=== PATIENT | female | born 1980 | race Caucasian/White ===

== ENCOUNTER → 2019-12-04 | Outpatient (CLI) | payer OTHER ==
[2019-12-04 13:07] VITALS: BP 111/73; PULSE 78; RESP 16; TEMP 98.1
--- NOTE | 2019-12-04 13:39 | P.GSHP ---
History of Present Illness H&P Date: 12/04/19 Chief Complaint: right breast garett Peña is a 39 year old white female who noted a small lump in her right breast 7 years ago. She states in July it increased in size and became painful. She had bilateral mammogram in July 2019 which was benign. She nielsen an ultrasound in August 2019 which showed a small fluid collection approximately 2.2 x 1.2 cm in size which there was question as to whether this was a area of abscess under treatment. This was felt to be benign BIRADS 3 and 6 month repeat radiographic evaluation of the right breast was recommended. She was treated with antibiotics between the mammogram and ultrsound did not seem to help, and the patient presented to the emergency room in [place]. She was given [place] for the pain and a different antibiotic the area spontaneously drained after which she felt better. This was approximately August 22. The patient has some mild persistent tenderness, it has not resolved completely. She has no increase in swelling at the site. No fever or chills. Had any history of any trauma or infection in the breast in the past. She has not been for which she is concerned in the left breast. The erythema has resolved. Patient today secondary to concerns that the area keeps the infecting and this has been intermittent over the last 7 years. caffiene: daily pop and coffee smoke: 1/2 PPD chocolate: rare Family history: paternal grandmother: pancreatic cnacer maternal aunt: colon cancer Hormonal history: Menarche:11 , breat fed: no, first born at 25 periods regular BCP: none hormones: none Past surgical history: 2 C-sections Medical history: Negative Social history: Smokin/2 PPD cut back used to smoke 1 PPD for 20 years alcohol:rare drugs: none - Constitutional Constitutional: Denies chills, Denies fever - EENT Eyes: denies blurred vision, denies pain Ears: deny: decreased hearing, tinnitus Ears, nose, mouth and throat: Denies headache, Denies sore throat - Breasts Breasts: bilateral: as per HPI - Cardiovascular Cardiovascular: Denies chest pain, Denies shortness of breath - Respiratory Comment: asthma Respiratory: Denies cough, Denies 7 - Gastrointestinal Gastrointestinal: Denies abdominal pain, Denies diarrhea, Denies nausea, Denies vomiting - Genitourinary (Female) Genitourinary: Denies dysuria, Denies hematuria - Menstruation Menstruation: Reports period normal - Musculoskeletal Musculoskeletal: Denies myalgias - Integumentary Comment: Psoriasis - Neurological Neurological: Denies numbness, Denies weakness - Psychiatric Psychiatric: Reports anxiety, Reports depression - Endocrine Endocrine: Denies fatigue, Denies weight change - Hematologic/Lymphatic Comment: none - Allergic/Immunologic Allergic/Immunologic: Reports as per HPI Past Medical History Past Medical History: Asthma History of Any Multi-Drug Resistant Organisms: None Reported Additional Past Surgical History / Comment(s): section x2 2006 & 2009; Past Anesthesia/Blood Transfusion Reactions: No Reported Reaction Past Psychological History: Anxiety, Depression Smoking Status: Current every day smoker Past Alcohol Use History: Occasional Additional Past Alcohol Use History / Comment(s): started smoking at age 16 Past Drug Use History: None Reported - Past Family History Father Family Medical History: COPD Additional Family Medical History / Comment(s): "leaky valve" Mother Family Medical History: Diabetes Mellitus, Hypertension, Thyroid Disorder Medications and Allergies Home Medications Medication Instructions Recorded Confirmed Type No Known Home Medications 12/04/19 12/04/19 History Allergies Allergy/AdvReac Type Severity Reaction Status Date / Time No Known Allergies Allergy Unverified 12/04/19 12:46 Surgical - Exam Vital Signs Temp Pulse Resp BP Pulse Ox 98.1 F 78 16 111/73 100 12/04/19 12:46 12/04/19 12:46 12/04/19 12:46 12/04/19 12:46 12/04/19 12:46 BMI 28.3 - General well developed, well nourished, no distress - Eyes normal ocular movement - ENT no hearing loss, no congestion - Neck no masses, trachea midline - Respiratory normal expansion, normal respiratory effort, clear to auscultation - Cardiovascular Rhythm: regular Heart Sounds: normal: S1, S2 - Abdomen Abdomen: soft, non tender, no guarding, no rigid, no rebound - Integumentary normal turgor - Neurologic no disoriented, no combative - Musculoskeletal normal gait, normal posture - Psychiatric oriented to time, oriented to person, oriented to place, speech is normal, memory intact breast exam: Inspection: No evident external area of drainage or infection at this time and b ilateral breast Palpation: Right breast: Multi-positional exam reveals firmness under the right nipple areolar complex. With palpation there is some mild amount of drainage near the nipple area Right axilla: No adenopathy of concern Left breast: Positional exam fibrocystic changes no dominant masses or nodules of concern left axilla: No adenopathy of concern Results mammogram and ultrasound results reviewed Assessment and Plan Assessment: Impression: 1. right breast subaerolar induration 2. prior right breast abcesses 3. fibrocystic breast disease 4. family history of breast cancer Plan: 1. Repeat ultrasound underwent subareolar region to rule out a drainable abscess 2. Antibiotics were already given by primary care doctor/Bactrim. Start antibiotics 3. Cultures to be obtained 4. warm compresses to the area 5. follow up in two weeks Cc: With compression of the subareolar tissue there was some drainage from the nipple and this was sent for culture. Nothing was noted to be draining in the surrounding aerolar area. We have discussed the causes for possible breast abscess. The patient is going to modify her caffeine and nicotine exposure. The patient does not have any sexual activity which would increase her risk for a breast abscess. She may have had a dilated duct which became infected and she has had some chronic infections since that time. Again this is been ongoing for approximately 7 years but has become worse in the last several months. At this time there is nothing specific palpable for drainage. encounter 40 minutes, > 50% of time in planning and counselling Time with Patient: Greater than 30
--- NOTE | 2019-12-08 08:17 | USB ---
Reason for exam: clinical finding. History: Right U/S Cancelled VAD Biopsy of both breasts, December 03, 2013. Physical Findings: Breast exam performed by Dr. Christie. US Breast Limited RT Right limited breast ultrasound including focal area of concern, retroareolar and axilla demonstrates no cystic or solid lesion seen. Resolved from 08/25/19 outside ultrasound. These results were verbally communicated with the patient and result sheet given to the patient on 12/04/19. ASSESSMENT: Negative, BI-RAD 1 RECOMMENDATION: Clinical management of the right breast. Manage patient on a clinical basis. Suspect resolved infection.
--- NOTE | 2019-12-08 15:11 | P.PN ---
Progress Note - Text Progress Note Date: 12/08/19 Talked to Mariana today by phone. She states she has had no changes in her breasts. She is not complaining of any fever or chills. She has no change in drainage. Cultures were obtained which showed a few gram-negative bacilli and a few gram- positive bacilli. She is presently on Bactrim. An ultrasound obtained [place] [id number] did not show anything which would require drainage in the breast. I have recommended she be seen by infectious disease specialist. She will follow her in 6 weeks' time. If she develops increased fullness or drainage or any fever or chills she should go to the emergency room.
== END | disposition home or self-care (01) ==
LOC: WWCWWP 12:32
PROVIDERS: ATTEND Surgery
DX: N64.52 Nipple discharge (principal)
CPT/HCPCS: 87070; 87075; 87205